=== PATIENT | male | born 1985 | race Caucasian/White ===

== ENCOUNTER 2017-06-18 01:29 | Emergency (ER) | payer OTHER ==
--- NOTE | 2017-06-18 01:41 | EDM.PDOC ---
ED HPI GENERAL MEDICAL PROBLEM - General Chief Complaint: Upper Extremity Injury/Pain Stated Complaint: INJURY RIGHT HAND Time Seen by Provider: 06/18/17 01:40 Source of Information: Reports: Patient - History of Present Illness INITIAL COMMENTS - FREE TEXT/NARRATIVE: HISTORY AND PHYSICAL: History of present illness: Patient presents with laceration on his right fourth digit palmar aspect, is working on a [place] he was latching pipe missing his latch his finger was pinched by the drill pipe no fever nausea vomiting chills sweats no redness warmth or exudate there is a 3 cm linear laceration palmar aspect, hand is unaffected above the wrist there is no deformity entire limb is neurovascularly intact Review of systems: As per history of present illness and below otherwise all systems reviewed and negative. Past medical history: As per history of present illness and as reviewed below otherwise noncontributory. Surgical history: As per history of present illness and as reviewed below otherwise noncontributory. Social history: No reported history of drug or alcohol abuse. Family history: As per history of present illness and as reviewed below otherwise noncontributory. Physical exam: HEENT: Atraumatic, normocephalic, pupils reactive, negative for conjunctival pallor or scleral icterus, mucous membranes moist, throat clear, neck supple, nontender, trachea midline. Lungs: Clear to auscultation, breath sounds equal bilaterally, chest nontender. Heart: S1S2, regular, negative for clicks, rubs, or JVD. Abdomen: Soft, nondistended, nontender. Negative for masses or hepatosplenomegaly. Negative for costovertebral tenderness. Pelvis: Stable nontender. Genitourinary: Deferred. Rectal: Deferred. Extremities: Atraumatic, negative for cords or calf pain. Neurovascular unremarkable. Neuro: Awake, alert, oriented. Cranial nerves II through XII unremarkable. Cerebellum unremarkable. Motor and sensory unremarkable throughout. Exam nonfocal. Skin as per history of present illness Diagnostics: []Right hand x-ray 3 views Therapeutics: []Tetanus status is updated Lidocaine #5 4-0 Prolene sutures interrupted excellent alignment no complication no complaint Standard wound care instructions Bacitracin to contrast Impression: []3 cm linear laceration right fourth digit palmar aspect Definitive disposition and diagnosis as appropriate pending reevaluation and review of above. Right Middle Hand Pain Score (Numeric/FACES): 3 - Related Data Allergies Allergy/AdvReac Type Severity Reaction Status Date / Time No Known Allergies Allergy Verified 06/18/17 01:34 Home Meds: Home Meds . [No Known Home Meds] 06/18/17 [History] Past Medical History HEENT History: Reports: None Cardiovascular History: Reports: None Respiratory History: Reports: None Gastrointestinal History: Reports: None Genitourinary History: Reports: None Neurological History: Reports: None Psychiatric History: Reports: None Endocrine/Metabolic History: Reports: None Dermatologic History: Reports: None - Infectious Disease History Infectious Disease History: Reports: None - Past Surgical History HEENT Surgical History: Reports: None Cardiovascular Surgical History: Reports: None Respiratory Surgical History: Reports: None GI Surgical History: Reports: None Male Surgical History: Reports: None Endocrine Surgical History: Reports: None Dermatological Surgical History: Reports: Plastic Surgical Reconstruction/Repair Social & Family History - Tobacco Use Smoking Status *Q: Never Smoker Review of Systems - Review of Systems Review Of Systems: ROS reveals no pertinent complaints other than HPI. ED EXAM, GENERAL - Physical Exam Exam: See Below Course - Vital Signs Last Recorded V/S: Last Vital Signs Temp 36.4 C 06/18/17 01:34 Pulse 83 06/18/17 01:34 Resp 18 06/18/17 01:34 BP 133/90 06/18/17 01:34 Pulse Ox 99 06/18/17 01:34 - Orders/Labs/Meds Orders: Active Orders 24 hr Category Date Time Status Vaccines to be Administered [RC] PER UNIT ROUTINE Care 06/18/17 01:45 Active Hand Comp Min 3V Rt [CR] Stat Exams 06/18/17 01:40 Taken Meds: Medications Discontinued Medications Generic Name Dose Route Start Last Admin Trade Name Freq PRN Reason Stop Dose Admin Diphtheria/Tetanus/Acell Pertussis 0.5 ml 06/18/17 01:45 06/18/17 02:05 Adacel IM 06/18/17 01:46 0.5 ml .ONCE ONE Administration Lidocaine HCl 20 ml 06/18/17 01:53 Xylocaine 1% INJECT 06/18/17 01:54 ONETIME ONE Departure - Departure Time of Disposition: 02:29 Disposition: Home, Self-Care 01 Condition: Good Clinical Impression: Laceration - Discharge Information Forms: ED Department Discharge Additional Instructions: Standard wound care as instructed Keep wound clean and dry for 48 hours Return if fever nausea vomiting chills sweats redness warmth or pus drainage should develop Sutures out in 10 days Follow-up with occupational health as needed [facility] [address] [place] [id number] The following information is given to patients seen in the emergency department who are being discharged to home. This information is to outline your options for follow-up care. We provide all patients seen in our emergency department with a follow-up referral. The need for follow-up, as well as the timing and circumstances, are variable depending upon the specifics of your emergency department visit. If you don't have a primary care physician on staff, we will provide you with a referral. We always advise you to contact your personal physician following an emergency department visit to inform them of the circumstance of the visit and for follow-up with them and/or the need for any referrals to a consulting specialist. The emergency department will also refer you to a specialist when appropriate. This referral assures that you have the opportunity for follow-up care with a specialist. All of these measure are taken in an effort to provide you with optimal care, which includes your follow-up. Under all circumstances we always encourage you to contact your private physician who remains a resource for coordinating your care. When calling for follow-up care, please make the office aware that this follow-up is from your recent emergency room visit. If for any reason you are refused follow-up, please contact the [facility] emergency department at and asked to speak to the emergency department charge nurse. - My Orders Last 24 Hours: My Active Orders 06/18/17 01:40 Hand Comp Min 3V Rt [CR] Stat 06/18/17 01:45 Vaccines to be Administered [RC] PER UNIT ROUTINE - Assessment/Plan Last 24 Hours: My Active Orders 06/18/17 01:40 Hand Comp Min 3V Rt [CR] Stat 06/18/17 01:45 Vaccines to be Administered [RC] PER UNIT ROUTINE
[2017-06-18] MEDS ORDERED: Diphtheria,Pertussis(Acell),Tetanus Vaccine 0.5 ML Syringe IM ONE (01:45)
[2017-06-18] MEDS ORDERED: Lidocaine 1% 20 ML MDV INJECT ONE (01:53)
[2017-06-18] MEDS ORDERED: Bacitracin Oint 1 GM U/D Packet TOP ONE (02:33)
[2017-06-18 03:14] VITALS: BP 116/73
--- NOTE | 2017-06-18 15:22 | CR ---
EXAM DATE: 06/18/17 PATIENT'S AGE: 32 Patient: BRAYAN LEAHY Facility: [place], [place] Site . Site : 1985 Study: XRay Extremity Right [id number]/24/2017 2:05:48 AM Ordering Physician: Sheng Loera Final Report: INDICATION: INJURY AT WORK MIDDLE FINGER LACERATION TECHNIQUE: Three views of the right hand COMPARISON: None FINDINGS: Bones: No fractures or bone lesions. Joint spaces: Unremarkable. Soft tissues: Soft tissue swelling/ laceration along the proximal right middle finger. No radiopaque foreign body. IMPRESSION: Soft tissue swelling/laceration along the proximal right middle finger. No radiopaque foreign body. No acute bony abnormality. Dictated by Júnior Ann MD @ 06/18/2017 2:08:35 AM Dictated by: Júnior Ann MD @ 06/18/2017 02:08:42 (Electronic Signature) Report Signed by Proxy. MARIBEL
== END 2017-06-18 02:59 | disposition home or self-care (01) ==
LOC: MW.ED 01:29
DX: S61.212A Laceration without foreign body of right middle finger without damage to nail, initial encounter (principal); Z98.890 Other specified postprocedural states; Z23 Encounter for immunization; W23.0XXA Caught, crushed, jammed, or pinched between moving objects, initial encounter; Y92.69 Other specified industrial and construction area as the place of occurrence of the external cause; Y99.0 Civilian activity done for income or pay
CPT/HCPCS: 12002; 73130-26-RT; 73130-RT; 90471; 90715; 99283; 99283-25